=== PATIENT | female | born 1945 ===

== ENCOUNTER 2017-11-11 12:40 | Emergency (ER) | payer BC, MEDICARE ==
[2017-11-11 13:02] VITALS: BP 119/87
[2017-11-11] MEDS ORDERED: Acetaminophen TAB* 325 MG PO ONE (13:16)
--- NOTE | 2017-11-11 13:19 | UC ---
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 now patient has 24 hours of fevers , cough - History of Current Complaint Hx Obtained From: Patient Hx From Patient Unobtainable Due To: Dementia ?: No Onset/Duration: Sudden Onset Timing: Constant Pain Intensity: 7 Pain Scale Used: 0-10 Numeric Character: Cough: Productive Aggravating Factors: Nothing Alleviating Factors: Nothing Associated Signs And Symptoms: Positive: Fever, Chills, Pleuritic Chest Pain, URI <Cristina Magallon - Last Filed: 11/11/17 14:08> <Toshia Hatfield - Last Filed: 11/11/17 17:41> - History of Current Complaint Chief Complaint: UCRespiratory Stated Complaint: UPPER RESPIRATORY Time Seen by Provider: 11/11/17 13:09 - Allergies/Home Medications Allergies/Adverse Reactions: Allergies Allergy/AdvReac Type Severity Reaction Status Date / Time codeine AdvReac Hallucinati Verified 11/11/17 12:52 ons Home Medications: Home Medications Amlodipine Besylate [Norvasc 5 mg tab] 5 mg PO DAILY 11/11/17 [History Confirmed 11/11/17] Aspirin [Aspir-Low] 81 mg PO DAILY 11/11/17 [History Confirmed 11/11/17] Calcium Carbonate/Vitamin D3 [Calcium 600 + Vit D Tablet] 1 each PO BID [History Confirmed 11/11/17] Levothyroxine TAB* [Synthroid TAB*] 50 mcg PO DAILY 11/11/17 [History Confirmed 11/11/17] Losartan/Hydrochlorothiazide [Losartan-Hctz 50-12.5 mg Tab] 1 tab PO DAILY 11/11 [History Confirmed 11/11/17] Methylphenidate ER TAB* [Concerta ER TAB*] 36 mg PO DAILY 11/11/17 [History Confirmed 11/11/17] Venlafaxine CAP (NF) [Effexor CAP (NF)] 75 mg PO DAILY 11/11/17 [History Confirmed 11/11/17] PMH/Surg Hx/FS Hx/Imm Hx Previously Healthy: No Endocrine History: Hypothyroidism Cardiovascular History: Hypertension Psychological History: Depression - Surgical History Surgical History: Yes Surgery Procedure, Year, and Place: rotator cuff. meniscus. R ORTIZ. hysterectomy - Family History Known Family History: Positive: None - Social History Occupation: Employed Full-time Lives: With Family Alcohol Use: None Substance Use Type: None Smoking Status (MU): Never Smoked Tobacco <Cristina Magallon - Last Filed: 11/11/17 14:08> Review of Systems Constitutional: Fever Skin: Negative Eyes: Negative ENT: Negative Respiratory: Cough Cardiovascular: Negative Gastrointestinal: Negative Genitourinary: Negative Motor: Negative Neurovascular: Negative Musculoskeletal: Negative Neurological: Negative Psychological: Negative Is Patient Immunocompromised?: No All Other Systems Reviewed And Are Negative: Yes <Cristina Magallon - Last Filed: 11/11/17 14:08> Physical Exam Triage Information Reviewed: Yes Appearance: Well-Appearing, No Pain Distress, Well-Nourished Vital Signs: Initial Vital Signs Temp 101.3 F 11/11/17 12:55 Pulse 85 11/11/17 12:55 Resp 18 11/11/17 12:55 BP 119/87 11/11/17 12:55 Pulse Ox 97 11/11/17 12:55 Vital Signs Reviewed: Yes Eye Exam: Normal Eyes: Positive: Conjunctiva Clear ENT Exam: Normal ENT: Positive: Normal ENT inspection, Hearing grossly normal, Pharynx normal, TMs normal, Uvula midline. Negative: Nasal congestion, Trismus, Muffled voice, Hoarse voice, Dental tenderness, Sinus tenderness Dental Exam: Normal Neck exam: Normal Neck: Positive: Supple, Nontender, No Lymphadenopathy Respiratory Exam: Normal Respiratory: Positive: Chest non-tender, No respiratory distress, No accessory muscle use, Wheezing Cardiovascular Exam: Normal Cardiovascular: Positive: RRR, No Murmur, Pulses Normal, Brisk Capillary Refill Musculoskeletal Exam: Normal Musculoskeletal: Positive: Strength Intact, ROM Intact, No Edema Neurological Exam: Normal Neurological: Positive: Alert, Muscle Tone Normal Psychological Exam: Normal Skin Exam: Normal <Cristina Magallon - Last Filed: 11/11/17 14:08> Vital Signs: Initial Vital Signs Temp 101.3 F 11/11/17 12:55 Pulse 85 11/11/17 12:55 Resp 18 11/11/17 12:55 BP 119/87 11/11/17 12:55 Pulse Ox 97 11/11/17 12:55 <Toshia Hatfield - Last Filed: 11/11/17 17:41> Diagnostic Evaluation - Laboratory O2 Sat by Pulse Oximetry: 97 - Radiology Xray Interpretation: No Acute Changes Radiology Interpretation Completed By: ED Physician, Radiologist - Patient Name : GEORGE GALINDO Medical Record#: [id number] <Cristina Magallon - Last Filed: 11/11/17 14:08> Respiratory Course/Dx - Course Course Of Treatment: Tyelnol for pain/fever, zithromax, albuterol,otc meds for symptom relief, follow with pcp prn, - Differential Dx/Diagnosis Provider Diagnoses: Acute bronchitis, febrile illness <Cristina Magallon - Last Filed: 11/11/17 14:08> Discharge - Sign-Out/Discharge Documenting (check all that apply): Discharge/Admit/Transfer - Billing Disposition and Condition Condition: STABLE Disposition: HOME <Cristina Magallon - Last Filed: 11/11/17 14:08> - Billing Disposition and Condition Condition: STABLE Disposition: HOME <Toshia Hatfield - Last Filed: 11/11/17 17:41> - Discharge Plan Condition: Stable Disposition: HOME Prescriptions: Albuterol HFA INHALER* [Ventolin HFA Inhaler*] 2 puff INH Q4H PRN #1 mdi PRN Reason: cough Azithromycin TAB* [Zithromax TAB (Z-PAOLA) 250 mg #6 tabs] 2 tab PO .TODAY, THEN 1 DAILY #1 paola Patient Education Materials: Fever in Adults (ED), Acute Bronchitis (ED) Referrals: Karol Christianson MD [Primary Care Provider] - If Needed Attestation Statement User Type: Provider - I was available for consult. This patient was seen by the MARILEE. The patient was not presented to, seen by, or examined by me. -Jimmie <Toshia Hatfield - Last Filed: 11/11/17 17:41>
--- NOTE | 2017-11-11 13:39 | RAD ---
INDICATION: Productive cough and fever. History of [place] syndrome. COMPARISON: May 02, 2013 mammogram. TECHNIQUE: Dual energy PA and routine lateral views of the chest were obtained. REPORT: Opacity from RIGHT unilateral breast augmentation prosthesis. No pulmonary infiltrate, pleural effusion, or pneumothorax. Lung volumes appear elevated. The heart, pulmonary vasculature, and mediastinal contours are unremarkable. IMPRESSION: IMPRESSION: Stigmata of probable obstructive lung disease. No acute pulmonary or cardiac process evident.
[2017-11-14 18:56] LABS: Bordetella pertussis PCR Negative
== END 2017-11-11 13:55 | disposition home or self-care (01) ==
LOC: UCCORT 12:40
DX: J20.9 Acute bronchitis, unspecified (principal); R50.9 Fever, unspecified; I10 Essential (primary) hypertension; E11.9 Type 2 diabetes mellitus without complications; Z79.899 Other long term (current) drug therapy; Z88.5 Allergy status to narcotic agent
CPT/HCPCS: 71046; 87798; 99212; A9270-GY; G0463